=== PATIENT | female | born 1990 | race Asian ===

== ENCOUNTER 2018-01-19 09:19 | Emergency (ER) | payer OTHER ==
[~2018-01-19] VITALS: Ht 162.6 cm; Wt 79.0 kg
[2018-01-19 11:27] VITALS: BP 157/93
== END 2018-01-19 11:27 | disposition home or self-care (01) ==
LOC: ER 09:20
DX: O36.8120 Decreased fetal movements, second trimester, not applicable or unspecified (principal); Z3A.27 27 weeks gestation of pregnancy
CPT/HCPCS: 76819; 99284